=== PATIENT | female | born 1940 | race Caucasian/White ===

== ENCOUNTER 2024-04-16 11:11 | Emergency (ER) | payer MEDICARE, OTHER ==
[2024-04-16] MEDS: traMADol 50 MG Tab PO ONE (11:47)
[2024-04-16] MEDS: Take Home: traMADol 50 MG, 4 Tab Pack PO ONE (11:47)
== END 2024-04-16 12:01 | disposition home or self-care (01) ==
LOC: VM.ED 11:11
DX: M53.3 Sacrococcygeal disorders, not elsewhere classified (principal); I11.0 Hypertensive heart disease with heart failure; I50.9 Heart failure, unspecified; N17.9 Acute kidney failure, unspecified; E03.9 Hypothyroidism, unspecified; E66.9 Obesity, unspecified; Z68.39 Body mass index [BMI] 39.0-39.9, adult; Z79.899 Other long term (current) drug therapy
CPT/HCPCS: 99283; 99284; A9270-GY

== ENCOUNTER 2024-06-19 09:13 | Inpatient (IN) | payer MEDICARE, OTHER ==
[2024-06-19] MEDS ORDERED: Sodium Chloride 0.9% 10 ML Syringe FLUSH PRN (10:13)
[2024-06-19] MEDS: Lactated Ringers 1,000 ML IV SCH ×2 (10:30→14:45)
[2024-06-19] MEDS: HYDROmorphone 0.5 MG/0.5 ML Syringe IVPUSH ONE (10:30)
[2024-06-19 10:33] LABS: BASOPHILS PERCENT AUTO 0.1 % (0.2-1.2); EOSINOPHILS PERCENT AUTO 0.1 % (0.0-4.0); HEMATOCRIT 40.1 % (33.0-47.0); HEMOGLOBIN 13.6 g/dL (12.0-16.0); IMMATURE GRAN ABSOLUTE AUTO 0.06 x10^3/uL (0.00-0.07); LYMPHOCYTES ABSOLUTE AUTO 1.1 x10^3/uL (1.0-4.8); LYMPHOCYTES PERCENT AUTO 7.3 % (25.0-50.0); MEAN CORPUSCULAR HEMOGLOBIN 30.5 pg (26.0-32.0); MEAN CORPUSCULAR HGB CONC 33.9 g/dL (32.0-36.0); MEAN CORPUSCULAR VOLUME 89.9 fL (78.0-93.0); MONOCYTES ABSOLUTE AUTO 0.8 x10^3/uL (0.0-0.8); MONOCYTES PERCENT AUTO 5.3 % (2.0-11.0); NEUTROPHILS ABSOLUTE AUTO 12.8 x10^3/uL (1.8-7.7); NEUTROPHILS PERCENT AUTO 86.8 % (50.0-80.0); PLATELET COUNT,PLT 173 x10^3/uL (130-400); RED BLOOD CELL COUNT 4.46 x10^6/uL (4.00-5.50); WHITE BLOOD CELL COUNT,WBC 14.8 x10^3/uL (4.0-10.0)
[2024-06-19] MEDS: Ondansetron 4 MG/2 ML SDV IVPUSH ONE (10:35)
[2024-06-19 10:47] LABS: PROTHROMBIN TIME 9.9 SEC (8.9-11.5)
[2024-06-19 10:49] LABS: A/G RATIO 0.92; ALANINE AMINOTRANSFERASE,ALT 35 U/L (14-59); ALBUMIN 3.5 g/dL (3.4-5.0); ALKALINE PHOSPHATASE 90 U/L (46-116); AMYLASE 42 U/L (25-115); ASPARTATE AMNIOTRANSFERASE,AST 20 U/L (15-37); BILIRUBIN TOTAL 0.6 mg/dL (0.2-1.0); BLOOD UREA NITROGEN,BUN 27 mg/dL (7-18); C-REACTIVE PROTEIN 0.69 mg/dL (<=0.50); CALCIUM 9.6 mg/dL (8.5-10.1); CARBON DIOXIDE,CO2 28 mmol/L (21-32); CHLORIDE,CL 102 mmol/L (98-107); CREATININE 1.1 mg/dL (0.55-1.02); GLUCOSE RANDOM 256 mg/dL (70-99); MAGNESIUM 1.8 mg/dL (1.8-2.4); POTASSIUM,K 4.2 mmol/L (3.5-5.1); PROTEIN TOTAL,TP 7.3 g/dL (6.4-8.2); SODIUM,NA 140 mmol/L (136-145)
[2024-06-19 10:51] LABS: ANION GAP 14.2 mmol/L (5-15); ESTIMATED GFR 50 mL/min (>=60)
[2024-06-19 10:53] LABS: LACTIC ACID 3.1 mmol/L (0.4-2.0)
[2024-06-19] MEDS: Iopamidol 612 MG/ML 100 ML Bottle IVPUSH ONE (12:07)
[2024-06-19] MEDS: Piperacillin/Tazobactam 4.5 GM in Sodium Chloride 0.9% 100 ML IV ONE (13:08)
[2024-06-19] MEDS ORDERED: Ondansetron 4 MG/2 ML SDV IV PRN (13:50)
[2024-06-19 13:59] LABS: APPEARANCE,URINE CLEAR (CLEAR); BILIRUBIN,URINE NEGATIVE (NEGATIVE); GLUCOSE,URINE 100 mg/dL (NEGATIVE); KETONES,URINE NEGATIVE (NEGATIVE); LEUKOCYTE ESTERASE,URINE NEGATIVE (NEGATIVE); NITRITE,URINE NEGATIVE (NEGATIVE); OCCULT BLOOD,URINE NEGATIVE (NEGATIVE); PH,URINE 5.5 (5.0-8.0); PROTEIN,URINE 30 mg/dL (NEGATIVE); UROBILINOGEN,URINE 0.2 EU/dL (0.2)
[2024-06-19 14:00] LABS: COLOR,URINE DARK YELLOW (YELLOW)
[2024-06-19 14:05] LABS: AMORPHOUS SEDIMENT,URINE OCCASIONAL; BACTERIA,URINE NOT SEEN /HPF (NOT SEEN); MUCUS,URINE NOT SEEN /LPF (NOT SEEN); RBC,URINE 0-5 /HPF (NOT SEEN); SQUAMOUS EPITHELIAL CELLS,UR OCCASIONAL /HPF (NOT SEEN); WBC,URINE 0-5 /HPF (NOT SEEN)
[2024-06-19] MEDS: Heparin Sodium 5,000 Units/ML Vial SUBCUT SCH (14:55)
[2024-06-19] MEDS: Carvedilol 12.5 MG Tab PO SCH (18:42)
[2024-06-19] MEDS: HYDROmorphone 0.5 MG/0.5 ML Syringe IVPUSH PRN (18:45)
[2024-06-19] MEDS: Piperacillin/Tazobactam 4.5 GM in Sodium Chloride 0.9% 100 ML IV SCH (21:32)
[2024-06-19] MEDS: atorvaSTATin 10 MG Tab PO SCH (21:42)
[2024-06-19] MEDS: Acetaminophen 500 MG Tab PO SCH (21:43)
[2024-06-20] MEDS: Levothyroxine 25 MCG Tab PO SCH (06:08)
[2024-06-20 07:20] LABS: BASOPHILS PERCENT AUTO 0.1 % (0.2-1.2); EOSINOPHILS PERCENT AUTO 0.1 % (0.0-4.0); HEMATOCRIT 34.8 % (33.0-47.0); HEMOGLOBIN 11.6 g/dL (12.0-16.0); IMMATURE GRAN ABSOLUTE AUTO 0.03 x10^3/uL (0.00-0.07); LYMPHOCYTES ABSOLUTE AUTO 1.8 x10^3/uL (1.0-4.8); LYMPHOCYTES PERCENT AUTO 14.9 % (25.0-50.0); MEAN CORPUSCULAR HEMOGLOBIN 30.7 pg (26.0-32.0); MEAN CORPUSCULAR HGB CONC 33.3 g/dL (32.0-36.0); MEAN CORPUSCULAR VOLUME 92.1 fL (78.0-93.0); MONOCYTES ABSOLUTE AUTO 1.2 x10^3/uL (0.0-0.8); MONOCYTES PERCENT AUTO 9.6 % (2.0-11.0); NEUTROPHILS PERCENT AUTO 75.1 % (50.0-80.0); PLATELET COUNT,PLT 144 x10^3/uL (130-400); RED BLOOD CELL COUNT 3.78 x10^6/uL (4.00-5.50)
[2024-06-20 07:51] LABS: A/G RATIO 0.84; ALBUMIN 2.7 g/dL (3.4-5.0); BILIRUBIN TOTAL 0.5 mg/dL (0.2-1.0); C-REACTIVE PROTEIN 5.49 mg/dL (<=0.50); CALCIUM 8.7 mg/dL (8.5-10.1); EST CRCL DRUG DOSING (CG) 30.08 mL/min; PROTEIN TOTAL,TP 5.9 g/dL (6.4-8.2)
[2024-06-20] MEDS ORDERED: Sodium Chloride 0.9% 10 ML Syringe FLUSH PRN (08:07)
[2024-06-20] MEDS: Cholecalciferol (Vitamin D3) 25 MCG Tab PO SCH (08:59)
[2024-06-20] MEDS: Beta-Carotene (Vitamin A) w/Vitamin C & E plus Minerals Tab PO SCH (09:01)
[2024-06-20] MEDS: Calcium Carbonate/Vitamin D3 1250 MG-5 MCG Tab PO SCH (09:03)
[2024-06-20] MEDS: amLODIPine 5 MG Tab PO SCH (09:04)
[2024-06-20] MEDS: Furosemide 20 MG Tab PO SCH (09:05)
[2024-06-21 08:37] LABS: BASOPHILS PERCENT AUTO 0.1 % (0.2-1.2); EOSINOPHILS ABSOLUTE AUTO 0.1 x10^3/uL (0.0-0.5); EOSINOPHILS PERCENT AUTO 0.7 % (0.0-4.0); HEMATOCRIT 32.5 % (33.0-47.0); HEMOGLOBIN 10.6 g/dL (12.0-16.0); IMMATURE GRAN ABSOLUTE AUTO 0.06 x10^3/uL (0.00-0.07); LYMPHOCYTES ABSOLUTE AUTO 1.8 x10^3/uL (1.0-4.8); LYMPHOCYTES PERCENT AUTO 16.8 % (25.0-50.0); MEAN CORPUSCULAR HGB CONC 32.6 g/dL (32.0-36.0); MEAN CORPUSCULAR VOLUME 92.1 fL (78.0-93.0); MONOCYTES ABSOLUTE AUTO 0.9 x10^3/uL (0.0-0.8); MONOCYTES PERCENT AUTO 8.4 % (2.0-11.0); NEUTROPHILS PERCENT AUTO 73.5 % (50.0-80.0); PLATELET COUNT,PLT 141 x10^3/uL (130-400); RED BLOOD CELL COUNT 3.53 x10^6/uL (4.00-5.50); WHITE BLOOD CELL COUNT,WBC 10.9 x10^3/uL (4.0-10.0)
[2024-06-21 08:49] LABS: CALCIUM 8.6 mg/dL (8.5-10.1); EST CRCL DRUG DOSING (CG) 30.08 mL/min; POTASSIUM,K 3.9 mmol/L (3.5-5.1)
[2024-06-21 08:54] LABS: ANION GAP 9.9 mmol/L (5-15)
[2024-06-22 08:08] LABS: BASOPHILS PERCENT AUTO 0.1 % (0.2-1.2); EOSINOPHILS ABSOLUTE AUTO 0.2 x10^3/uL (0.0-0.5); EOSINOPHILS PERCENT AUTO 1.8 % (0.0-4.0); HEMATOCRIT 31.2 % (33.0-47.0); HEMOGLOBIN 10.4 g/dL (12.0-16.0); IMMATURE GRAN ABSOLUTE AUTO 0.06 x10^3/uL (0.00-0.07); LYMPHOCYTES ABSOLUTE AUTO 1.8 x10^3/uL (1.0-4.8); LYMPHOCYTES PERCENT AUTO 20.6 % (25.0-50.0); MEAN CORPUSCULAR HGB CONC 33.3 g/dL (32.0-36.0); MEAN CORPUSCULAR VOLUME 92.9 fL (78.0-93.0); MONOCYTES ABSOLUTE AUTO 0.8 x10^3/uL (0.0-0.8); MONOCYTES PERCENT AUTO 9.7 % (2.0-11.0); NEUTROPHILS ABSOLUTE AUTO 5.8 x10^3/uL (1.8-7.7); NEUTROPHILS PERCENT AUTO 67.1 % (50.0-80.0); PLATELET COUNT,PLT 146 x10^3/uL (130-400); RED BLOOD CELL COUNT 3.36 x10^6/uL (4.00-5.50); WHITE BLOOD CELL COUNT,WBC 8.7 x10^3/uL (4.0-10.0)
[2024-06-22 08:41] LABS: A/G RATIO 0.67; ALBUMIN 2.4 g/dL (3.4-5.0); BILIRUBIN TOTAL 0.4 mg/dL (0.2-1.0); C-REACTIVE PROTEIN 5.36 mg/dL (<=0.50); CALCIUM 8.7 mg/dL (8.5-10.1); EST CRCL DRUG DOSING (CG) 30.08 mL/min
[2024-06-22] MEDS ORDERED: Amoxicillin/Clavulanate K 500-125 MG Tab PO SCH (14:00)
== END 2024-06-22 10:50 | disposition home or self-care (01) | DRG 378 ==
LOC: VM.ED 09:13 → VM.MS 14:00
PROVIDERS: ADMIT Family Medicine; ATTEND Family Medicine
DX: K57.32 Diverticulitis of large intestine without perforation or abscess without bleeding (principal); K57.31 Diverticulosis of large intestine without perforation or abscess with bleeding; I50.9 Heart failure, unspecified; I50.32 Chronic diastolic (congestive) heart failure; Z68.41 Body mass index [BMI] 40.0-44.9, adult; E66.9 Obesity, unspecified; E78.00 Pure hypercholesterolemia, unspecified; I44.7 Left bundle-branch block, unspecified; E03.9 Hypothyroidism, unspecified; I11.0 Hypertensive heart disease with heart failure; M19.90 Unspecified osteoarthritis, unspecified site; E66.01 Morbid (severe) obesity due to excess calories; G47.30 Sleep apnea, unspecified; F10.90 Alcohol use, unspecified, uncomplicated; E86.0 Dehydration; R73.9 Hyperglycemia, unspecified; Z96.659 Presence of unspecified artificial knee joint; K62.5 Hemorrhage of anus and rectum; Z98.890 Other specified postprocedural states; Z79.1 Long term (current) use of non-steroidal anti-inflammatories (NSAID); Z79.899 Other long term (current) drug therapy; Z79.02 Long term (current) use of antithrombotics/antiplatelets
CPT/HCPCS: 36415; 74176; 80048; 80053; 81001; 82150; 83605; 83735; 83880; 85025; 85610; 85730; 86140; 97161-GP; 99284; A9270-GY; J1171; J1644; J2405; J2543; J3490; J7120